=== PATIENT | male | born 1945 | race American Indian/Alaskan Native ===

== ENCOUNTER 2016-05-19 06:03 | Day surgery (SDC) | payer MEDICARE ==
[~2016-05-19 06:03] MED LIST: ANCEF/STERILE WATER 2 GM/20 ML 20 ML IV NR; NACL BACTERIOSTATIC INFILTRATI ONE
--- NOTE | 2016-05-19 06:49 | XRay Report ---
FINAL REPORT PROCEDURE: XR ABDOMEN 1V AP TECHNIQUE: Abdominal radiograph, single supine AP view. HISTORY: kidney stone COMPARISON: No prior studies are available for comparison. FINDINGS: Bowel gas pattern:Nonobstructive. Masses or calcifications:There are numerous small calcifications identified overlying renal silhouettes bilaterally. Renal calculi are suspected.. Bony structures:No significant abnormality. Other:None. IMPRESSION: Bilateral renal calculi. Nonobstructive bowel gas pattern.
[2016-05-19] MEDS ORDERED: NACL 0.9% 1000 ML 1,000 ML IV SCH (07:00)
[2016-05-19] MEDS ORDERED: VERSED IV NR (07:00)
[2016-05-19] MEDS ORDERED: PEPCID PO NR (07:00)
[2016-05-19 07:08] LABS: Hematocrit 42.7 % (35.5-45.6); Hemoglobin 14.2 gm/dl (11.8-15.2)
--- NOTE | 2016-05-19 07:27 | Anesthesia Consultation ---
Anesthesia Consult and Med Hx Date of service: 05/19/16 - Airway Anesthetic Teeth Evaluation: Poor, Partials ROM Head & Neck: Adequate Mental/Hyoid Distance: Adequate Mallampati Class: Class II Intubation Access Assessment: Good - Pulmonary Exam CTA: Yes - Cardiac Exam Cardiac Exam: No Murmur - Pre-Operative Health Status ASA Pre-Surgery Classification: ASA2 Proposed Anesthetic Plan: General - Pulmonary Hx Smoking: No Hx Asthma: Yes (PRN INHALERS- RARELY USED) Hx Sleep Apnea: No (ARIELA PRE SCREEN HIGH RISK) - Cardiovascular System Hx Hypertension: No - Other Systems Hx Cancer: No
[2016-05-19] MEDS ORDERED: SUBLIMAZE ONE (07:32)
[2016-05-19] MEDS ORDERED: DECADRON ONE (07:32)
[2016-05-19] MEDS ORDERED: DIPRIVAN 10 MG/ML IV ONE (07:32)
[2016-05-19] MEDS ORDERED: ZOFRAN ONE (07:32)
[2016-05-19] MEDS ORDERED: XYLOCAINE MPF 2% ONE (07:32)
--- NOTE | 2016-05-19 07:48 | Anesthesia Day of Surgery ---
Anesthesia Day of Surgery - Day of Surgery Patient Examined: Yes Patient H&P Reviewed: Yes Patient is NPO: Yes
[2016-05-19] MEDS ORDERED: NEO SYNEPHRINE/NS Syringe(OR USE) IV ONE (08:05)
[2016-05-19] MEDS ORDERED: WATER FOR IRRIG STERILE IR ONE (09:10)
--- NOTE | 2016-05-19 09:19 | Short Stay Summary ---
Short Stay Documentation Date of service: 05/19/16 - History H&P: obtained from office - Allergies and Medications Current Medications: Allergies No Known Allergies Allergy (Verified 05/10/16 14:22) Home Medications Medication Instructions Recorded Confirmed Last Taken Type ALBUTEROL Inhaler [Proair] 2 puff IH QID PRN 05/10/16 05/19/16 1 Month Ago History Active Medications Famotidine (Pepcid) 20 mg PO PREOP NR Stop: 05/19/16 23:59 Last Admin: 05/19/16 07:00 Dose: 20 mg Sodium Chloride (Nacl 0.9% 1000 Ml) 1,000 mls @ 100 mls/hr IV DIRECT TORITO Last Admin: 05/19/16 06:45 Dose: 100 mls/hr Cefazolin Sodium (Ancef/Sterile Water 2 Gm/20 Ml) 20 mls @ 80 mls/hr IV PREOP NR PRN Reason: Protocol Stop: 05/19/16 23:59 Midazolam HCl (Versed) 2 mg IV PREOP NR Stop: 05/19/16 23:59 Last Admin: 05/19/16 07:20 Dose: 2 mg - Brief post op/procedure progress note Date of procedure: 05/19/16 Pre-op diagnosis: left kidney stone, bladder stones x 2 Procedure: cysto, rpg, removal bladder stone x 2, left eswl Anesthesia: BELLA Surgeon: BETHANIE DUBON Estimated blood loss: minimal Pathology: none Condition: stable (stones given to ) - Hospital course Hospital course: macrinaro & ann marie on chart stones given to - Disposition Condition at discharge: Stable Disposition: DISCHARGED TO HOME OR SELFCARE
[2016-05-19 10:09] VITALS: BP 156/76
--- NOTE | 2016-05-19 10:16 | Operative Report ---
PREOPERATIVE DIAGNOSES: Bilateral kidney stones, left flank pain, bladder stone. POSTOPERATIVE DIAGNOSES: Bilateral kidney stones, left flank pain, bladder stone. PROCEDURE: Cystoscopy, bilateral retrograde pyelograms, cystolitholapaxy of bladder stone x 2, left extracorporal shock wave lithotripsy. SURGEON: Kareem Sexton MD ANESTHESIA: General. ANESTHESIOLOGIST: Coni Pennington MD ESTIMATED BLOOD LOSS: Minimal. FLUIDS: Crystalloid. COMPLICATIONS: No complications. INDICATIONS: This 71-year-old gentleman, patient of Dr. Daniel Pichardo presents with flank pain. CT of abdomen and pelvis revealed bilateral cysts, bilateral stones, right-sided kidney stone 7 mm, left side 5 mm, but asymptomatic, question of bladder stone as well with hematuria. He presents now for a surgical intervention. DESCRIPTION OF PROCEDURE: The patient was taken to the operative suite, placed in a supine position. After adequate general anesthesia, placed in a supine position. The stone could be appreciated on KUB as appeared to be in the UPJ, 5 mm. It was identified in 2 planes using fluoroscopy. Extracorporal shock wave lithotripsy was administered in maximum kV of five 2500 shocks. Five minute renal pause was also performed. Adequate fragmentation could be appreciated. He was then placed in the dorsal lithotomy position, prepped and draped in a sterile fashion. Pancystourethroscopy was performed with 22 Greek Storz cystoscope. Prostate displayed mild trilobar obstruction. No tumors were noted. He had 2 bladder stones that could be appreciated, extracted with alligator graspers and will be sent for routine pathologic evaluation once given to his . Bilateral retrograde pyelograms were obtained with an 8 Greek [place] catheter and 8 mL of contrast. No filling defects or obstruction could be appreciated in the lower ureters. His bladder was drained. Rectal exam was benign. He was extubated and taken to recovery room. He will go home on [employer] and [employer]. Follow up in the office. JOB# [id number] [facility]/[place]
--- NOTE | 2016-05-19 10:50 | Post Anesthesia Evaluation ---
- Post Anesthesia Evaluation Patient Participated: Yes Airway Patent: Yes Stable Respiratory Function: Yes Nausea/Vomiting: No Temp > 96.8F: Yes Pain Manageable: Yes Adequeate Hydration: Yes Anesthesia Complications: No Block Receding Appropriately: Not Applicable Patient on Ventilator: No
== END 2016-05-19 10:34 | disposition home or self-care (01) ==
LOC: OR 06:03
PROVIDERS: ATTEND Urology
DX: N20.0 Calculus of kidney (principal); N21.0 Calculus in bladder; J45.909 Unspecified asthma, uncomplicated; N40.0 Benign prostatic hyperplasia without lower urinary tract symptoms; Z98.890 Other specified postprocedural states
CPT/HCPCS: 36415; 50590; 74000; 85014; 85018; A4217; C1758; J0690; J1100; J2250; J2370; J2405; J2704; J3010; J7030; Q9967

== ENCOUNTER 2018-09-06 10:37 | Day surgery (SDC) | payer MEDICARE ==
[~2018-09-06 10:37] MED LIST changes: -ANCEF/STERILE WATER 2 GM/20 ML 20 ML IV NR; +ANCEF/STERILE WATER 2 GM/20 ML IV NR; -NACL BACTERIOSTATIC INFILTRATI ONE
[2018-09-06] MEDS ORDERED: LACTATED RINGERS 1,000 ML IV SCH (12:07)
[2018-09-06] MEDS ORDERED: VERSED IV ONE (12:07)
[2018-09-06] MEDS ORDERED: ZOFRAN ONE (13:10)
[2018-09-06] MEDS ORDERED: SUBLIMAZE ONE (13:10)
[2018-09-06] MEDS ORDERED: DECADRON ONE (13:10)
[2018-09-06] MEDS ORDERED: DIPRIVAN 10 MG/ML IV ONE (13:11)
[2018-09-06] MEDS ORDERED: ADRENALIN ONE (13:27)
--- NOTE | 2018-09-06 13:52 | Short Stay Summary ---
Short Stay Documentation Date of service: 09/06/18 - History H&P: obtained from office - Allergies and Medications Current Medications: Allergies No Known Allergies Allergy (Verified 05/10/16 14:22) Home Medications Medication Instructions Recorded Confirmed Last Taken Type ALBUTEROL Inhaler(NF) [VENTOLIN 1 puff IH PRN PRN 09/03/18 09/06/18 2 Weeks Ago History Inhaler(NF)] ~08/23/18 Ergocalciferol (Vitamin D2) 2,000 unit PO DAILY 09/03/18 09/03/18 09/05/18 History [Vitamin D2] Pumpkin Seed Oil/Saw [place] [Saw 160 mg PO DAILY 09/03/18 09/03/18 09/05/18 History [place] 160 mg Softgel] Active Medications Cefazolin Sodium (Ancef/Sterile Water 2 Gm/20 Ml) 2 gm IV PREOP NR Stop: 09/06/18 23:59 Lactated Ringer's (Lactated Ringers) 1,000 mls @ 100 mls/hr IV DIRECT TORITO Last Admin: 09/06/18 12:35 Dose: 100 mls/hr Documented by: - Brief post op/procedure progress note Date of procedure: 09/06/18 Pre-op diagnosis: rt renal stone Post-op diagnosis: same Procedure: RT ESWL Anesthesia: GETA Surgeon: BETHANIE DUBON Estimated blood loss: none Pathology: none Condition: stable - Hospital course Hospital course: ann marie higgins, post op info on chart - Disposition Condition at discharge: Stable Disposition: DC-01 TO HOME OR SELFCARE Short Stay Discharge Plan Follow up with: CASSANDRA CAMPBELL MD [Primary Care Provider] - 7 Days
[2018-09-06] MEDS ORDERED: LACTATED RINGERS 1,000 ML ONE (14:08)
[2018-09-06 15:40] VITALS: BP 149/75
--- NOTE | 2018-09-06 16:50 | Operative Report ---
PREOPERATIVE DIAGNOSES: Bilateral renal stones, right renal colic. POSTOPERATIVE DIAGNOSES: Bilateral renal stones, right renal colic. PROCEDURE: Right extracorporal shock wave lithotripsy, staged procedure. SURGEON: Kareem Sexton MD ANESTHESIA: General. ESTIMATED BLOOD LOSS: Minimal. FLUIDS: Crystalloid. COMPLICATIONS: No complications. INDICATIONS: This 73-year-old gentleman known to my service with a history of stones seen in the office earlier this month for hematuria. KUB in the office revealed bilateral stones. He has had previous CTs for stones in the past, has a 10 mm stone on the right. The patient discussed options. He wants to proceed with an intervention. DESCRIPTION OF PROCEDURE: The patient was taken to the operative suite, placed in a supine position. After adequate general anesthesia, he had a cluster of stones on the right that was localized with lithotripsy. Extracorporal shock wave lithotripsy was administered with a maximum kV of 8 and 2500 shocks. Adequate fragmentation could be appreciated. The patient tolerated the procedure well and was extubated and taken to recovery room. He will go home on [employer] and [employer]. JOB# [id number] [facility]
--- NOTE | 2018-09-06 17:29 | Anesthesia Day of Surgery ---
Anesthesia Day of Surgery - Day of Surgery Patient Examined: Yes Patient H&P Reviewed: Yes Patient is NPO: Yes
--- NOTE | 2018-09-06 17:29 | Anesthesia Consultation ---
Anesthesia Consult and Med Hx - Airway Anesthetic Teeth Evaluation: Good ROM Head & Neck: Adequate Mental/Hyoid Distance: Adequate Mallampati Class: Class II Intubation Access Assessment: Good - Pulmonary Exam CTA: Yes - Cardiac Exam Cardiac Exam: RRR - Pre-Operative Health Status ASA Pre-Surgery Classification: ASA2 Proposed Anesthetic Plan: General - Pulmonary Hx Smoking: No Hx Asthma: Yes (PRN INHALERS- RARELY USED) Hx Sleep Apnea: No (ARIELA PRE SCREEN HIGH RISK) - Cardiovascular System Hx Hypertension: No - Other Systems Hx Cancer: No
== END 2018-09-06 15:20 | disposition home or self-care (01) ==
LOC: OR 10:37
PROVIDERS: ATTEND Urology
DX: N20.0 Calculus of kidney (principal); J45.909 Unspecified asthma, uncomplicated; Z90.49 Acquired absence of other specified parts of digestive tract; Z98.890 Other specified postprocedural states; Z79.899 Other long term (current) drug therapy
CPT/HCPCS: 50590; J0171; J0690; J1100; J2250; J2405; J2704; J3010; J7120